=== PATIENT | female | born 1950 | race Caucasian/White ===

== ENCOUNTER → 2021-09-25 | Outpatient (CLI) | payer OTHER, MEDICARE ==
[~2021-09-25] MED LIST: CALCIUM500 MG PO; PRESERVISION A1 EACH PO; VITAMIN D3250 MC2 PO
== END ==
LOC: LAB 10:45
PROVIDERS: ATTEND Student in an Organized Health Care Education/Training Program
DX: Z01.812 Encounter for preprocedural laboratory examination (principal); Z20.822 Contact with and (suspected) exposure to COVID-19

== ENCOUNTER → 2021-09-27 | Outpatient (CLI) | payer OTHER, MEDICARE ==
[~2021-09-27] VITALS: Ht 167.6 cm; Wt 73.0 kg
--- NOTE | 2021-09-29 11:00 | P ---
[facility] [place] [id number] PROCEDURE REPORT Name: EDDIE WALTERS Room #: REG SUPRIYA Darin#: [id number] Admission: 09/27/21 Attend Phys: Toi Ch Discharge: Date of : 52 Report #: [id number] THIS REPORT FOR: cc: Dahlia Nuñez MD, Mara C. MD McElhinney, Christian C. MD ~ cc: Dr. Dahlia Nuñez DATE OF SERVICE: 09/27/2021 PROCEDURE PERFORMED: Colonoscopy. HISTORY OF PRESENT ILLNESS: The patient is a 71-year-old female who presents today for routine screening colonoscopy. Denies any symptoms, no family history of colon cancer. DESCRIPTION OF PROCEDURE: The risks and benefits of the procedure were explained to the patient, those risks including but not limited to bleeding, perforation and the risk of sedation. She understood these risks and gave informed consent. Sedation was given using propofol per anesthesia. Next, a digital rectal exam was initially performed, which was normal. Next, using a standard Olympus colonoscope, the scope was placed in the patient's anus and advanced under direct vision to the cecum. The overall prep was excellent. The cecum and ileocecal valve were normal in appearance. The ascending, transverse, descending and sigmoid colon were all normal. The rectal mucosa was normal. On retroflexion, no abnormalities were noted. The scope was then withdrawn and the procedure terminated. The patient tolerated the procedure well. IMPRESSION: Normal colonoscopy. RECOMMENDATIONS: Repeat colonoscopy in 10 years. Thank you for allowing me to participate in her care. <ELECTRONICALLY SIGNED> By: Toi Rebollar MD 09/29/21 [id number] Toi Rebollar MD /nt
== END | disposition home or self-care (01) ==
LOC: GI
PROVIDERS: ATTEND Specialist
DX: Z12.11 Encounter for screening for malignant neoplasm of colon (principal); Z98.890 Other specified postprocedural states
CPT/HCPCS: 62110; 62900